=== PATIENT | female | born 1965 | race Caucasian/White ===

== ENCOUNTER 2018-10-20 07:20 | Emergency (ER) | payer OTHER, MEDICAID ==
[~2018-10-20] VITALS: Ht 152.4 cm; Wt 45.4 kg
--- NOTE | 2018-10-20 07:20 | NUR ---
PT BIBA BLS TO ER BED 03
[2018-10-20 07:25] VITALS: BP 129/85
--- NOTE | 2018-10-20 07:30 | NUR ---
MONIKA FROM [facility] C/O HEMATURIA, PER EMS PT HAS HX OF RECURRENT UTI. PT NON-VERBAL. PT HAS PERSON CATHETER AND G-TUBE.NEUROLOGICALLY AT BASELINE MEDHX:UTI, QUADRAPLESIA, EPILEPSY, CEREBRAL PALSY, OSTEPOROSIS.PATIENT STATES PAIN OF 0/10 AT THIS TIME; PATIENT POSITIONED FOR COMFORT; HOB ELEVATED; BEDRAILS UP X2; BED DOWN. ER MADE AWARE OF PT STATUS. Addendum: 10/20/18 at 0814 by MED1 URINE 800CC HEMATURIA.
--- NOTE | 2018-10-20 07:59 | NUR ---
LAB AT BEDSIDE.
[2018-10-20 08:08] LABS: HEMATOCRIT 38.8 % (36-48); HEMOGLOBIN 12.6 g/dL (12.0-16.0); MEAN CORPUSCULAR HEMOGLOBIN 30 pg (27-31); MEAN CORPUSCULAR HGB CONC 33 g/dL (33-37); MEAN CORPUSCULAR VOLUME 91.8 fL (80-94); PLATELET COUNT (AUTO) 302 K/uL (140-450); RED BLOOD CELL COUNT(AUTO) 4.23 MIL/uL (4.20-5.40); RED CELL DISTRIBUTION WIDTH 16.3 % (11.6-13.7); WHITE BLOOD COUNT (AUTO) 11.1 K/uL (4.8-10.8)
[2018-10-20 08:14] LABS: APPEARANCE,URINE CLOUDY (CLEAR); BILIRUBIN,URINE NEGATIVE (NEGATIVE); BLOOD, URINE 3+ (NEGATIVE); COLOR,URINE YELLOW (YELLOW); LEUKOCYTE ESTERASE ,URINE 3+ (NEGATIVE); NITRITE, URINE POSITIVE (NEGATIVE); PH,URINE 8.5 (5.0-9.0); UGLUCOSE NEGATIVE (NEGATIVE)
[2018-10-20 08:21] LABS: ANION GAP 11.4 (8-16); CARBON DIOXIDE 28.3 mmol/L (21-32); CREATININE 0.4 mg/dL (0.6-1.3); POTASSIUM 3.7 mmol/L (3.5-5.1)
[2018-10-20 08:28] LABS: ALBUMIN 3.1 g/dL (3.4-5.0); TOTAL BILIRUBIN 0.4 mg/dL (0.0-1.0)
[2018-10-20 08:28] LABS: WBC,URINE 60-80 /HPF (0-5)
[2018-10-20 08:29] LABS: RBC,URINE >100 /HPF (0-5)
[2018-10-20 08:43] LABS: EOSINOPHILS % (MANUAL) 1 % (0-4); LYMPHOCYTES % (MANUAL) 6 % (20-46); MONOCYTES % (MANUAL) 3 % (5-12)
[2018-10-20] MEDS ORDERED: LANS15EC28 PO (08:46)
[2018-10-20] MEDS ORDERED: FLEPED RC (08:46)
[2018-10-20] MEDS ORDERED: BENZ29.52 TP (08:46)
[2018-10-20] MEDS ORDERED: DOCU-474 PO (08:46)
[2018-10-20] MEDS ORDERED: VITA1TAB44 PO (08:46)
[2018-10-20] MEDS ORDERED: ACET-2619 PO (08:46)
[2018-10-20] MEDS ORDERED: ASCO-770 PO (08:46)
[2018-10-20] MEDS ORDERED: LACT10SO1 PO (08:46)
[2018-10-20] MEDS ORDERED: CHLO1TAB42 PO (08:46)
[2018-10-20] MEDS ORDERED: MOM GT (08:46)
[2018-10-20] MEDS ORDERED: CALC-575 PO (08:46)
[2018-10-20] MEDS ORDERED: cefTRIAXone 1,000 MG in LIDOCAINE MPF 1% - 5 mL VIAL 2.1 ML IM ONE (08:55)
--- NOTE | 2018-10-20 09:19 | NUR ---
Patient appears to be resting comfortably in bed. Vital Signs within normal limits. Respirations even and unlabored.WILL CONTINUE TO MONITOR.
--- NOTE | 2018-10-20 10:20 | NUR ---
NORMAL BM AT THIS TIME.
[2018-10-20 11:28] VITALS: BP 131/82
--- NOTE | 2018-10-20 11:28 | NUR ---
Patient discharged with v/s stable. Written and verbal after care instructions given and explained. Patient alert, oriented and verbalized understanding of instructions. Wheel Chair Assisted with to car. All questions addressed prior to discharge. ID band removed. Patient advised to follow up with PMD. Rx of KEFLEX given. Patient educated on indication of medication including possible reaction and side effects. Opportunity to ask questions provided and answered.
--- NOTE | 2018-10-22 18:09 | NUR ---
lab reported e.coli in pt's urine and resistant to treatment given while in ER as well as to rx prescribed. notified--instructed to change from keflex to cipro 500mg bid x3 days Lupe rn palliative care from [facility] notified, she asked to call in rx to [facility] [phone]---closed for weekend Lupe then requested to call to [facility] [phone], she took info and requested to fax rx to [phone] completed
== END 2018-10-20 11:28 | disposition home or self-care (01) ==
LOC: MED 07:20
DX: T83.098A Other mechanical complication of other urinary catheter, initial encounter (principal); N39.0 Urinary tract infection, site not specified; R31.9 Hematuria, unspecified; G80.9 Cerebral palsy, unspecified; Z79.1 Long term (current) use of non-steroidal anti-inflammatories (NSAID); Z79.899 Other long term (current) drug therapy; Z88.2 Allergy status to sulfonamides; Z88.6 Allergy status to analgesic agent; Z88.1 Allergy status to other antibiotic agents
CPT/HCPCS: 36415; 80053; 81001; 85025; 87086; 87186; 96372; 99283; J0696; J2001

== ENCOUNTER 2019-02-19 19:45 | Emergency (ER) | payer OTHER, MEDICAID ==
[~2019-02-19] VITALS: Ht 137.2 cm; Wt 49.9 kg
[~2019-02-19 19:45] MED LIST: ACET-2619 PO; ASCO-770 PO; BENZ29.52 TP; CALC-575 PO; CHLO1TAB42 PO; DOCU-474 PO; FLEPED RC; LACT10SO1 PO; LANS15EC28 PO; MOM GT; VITA1TAB44 PO
[2019-02-19 19:49] VITALS: BP 137/78
--- NOTE | 2019-02-19 19:49 | NUR ---
PT TAKEN TO BED 1
--- NOTE | 2019-02-19 19:50 | NUR ---
53 Y/O FEMALE BIBA FROM [facility] BOARDING CARE FOR PERSON INSERTION. PER EMS PT HAD PERSON IN BUT HAD NO URINE OUTPUT, PERSON WAS TO BE RE INSERTED BUT CARE FACILITY WAS UNABLE TO. GCS:12; NORMAL TO BASELINE; NONVERBAL. BREATHING UNLABORED AND SYMMETRICAL. GTUBE DEPENDENT; PERSON CATHETER [address] OUTPUT 100[address] ERMD MADE AWARE OF STATUS. SIDE RAILSX1. PLACED ON MONITOR. WILL CONTINUE TO MONITOR. H MENTAL DELAY, SEIZURES, CP, GTUBE Addendum: 02/19/19 at 2026 by MEDDI BLADDER DISTENTION NOTED; SEIZURE PRECAUTIONS IMPLEMENTED
--- NOTE | 2019-02-19 20:08 | NUR ---
#16 AZERBAIJANI PERSON CATHETER INSERTED WITH IMMEDIATE RETURN OF 100 ML YELLOW URINE. PATIENT TOLERATED WELL.
--- NOTE | 2019-02-19 20:14 | NUR ---
CAREGIVER STATES FACILITY IS ABLE TO ARRANGE TRANSPORT, DOES NOT KNOW ETA, DR PHAN MADE AWARE.
--- NOTE | 2019-02-19 20:16 | NUR ---
Dr. Manuel examining patient.
--- NOTE | 2019-02-19 20:27 | NUR ---
SPOKE TO [facility] REPRESENTIVE FOR ETA; STATED THAT SHE WILL CALL BACK FOR REPORT.
--- NOTE | 2019-02-19 20:32 | NUR ---
SPOKE WITH NELSON FROM [facility]. WILL CALL BACK FOR ETA.
--- NOTE | 2019-02-19 21:26 | NUR ---
PATIENT IS CALM AND IN NO DISTRESS. REPOSITIONED PATIENT TO THE LEFT WITH PILLOWS UNDER BACK AND IN BETWEEN LEGS. WILL CONTINUE TO MONITOR.
--- NOTE | 2019-02-19 22:00 | NUR ---
REPOSITIONED PATIENT TO SUPINE. NO DISTRESS NOTED. WILL CONTINUE TO MONITOR
--- NOTE | 2019-02-20 00:07 | NUR ---
PATIENT IN NO DISTRESS AT THIS TIME. WILL CONTINUE TO MONITOR.
[2019-02-20 01:02] VITALS: BP 111/76
--- NOTE | 2019-02-20 01:02 | NUR ---
Patient discharged with v/s stable. Written and verbal after care instructions given and explained. Patient verbalized understanding. Ambulance Transport with to [facility]. All questions addressed prior to discharge. Advised to follow up with PMD.
--- NOTE | 2019-02-20 01:04 | NUR ---
[facility] AT BEDSIDE
== END 2019-02-20 01:02 | disposition home or self-care (01) ==
LOC: MED 19:45
DX: Z46.6 Encounter for fitting and adjustment of urinary device (principal); Z98.890 Other specified postprocedural states; Z79.899 Other long term (current) drug therapy; Z88.2 Allergy status to sulfonamides; Z88.6 Allergy status to analgesic agent; Z88.1 Allergy status to other antibiotic agents
CPT/HCPCS: 51702; 99284